=== PATIENT | female | born 1940 | race Caucasian/White ===

== ENCOUNTER 2019-12-22 11:46 | Inpatient (IN) | payer MEDICARE, BC ==
[~2019-12-22] VITALS: Ht 152.4 cm; Wt 59.1 kg
--- NOTE | ~2019-12-22 | HEMODYNAMI ---
PATIENT:CHRISTY GOULD MEDICAL RECORD: [id number] : 40 LOCATION:[facility] D.2122 ADMISSION DATE: 12/22/19 Generatedon:12/23/201916:08 Patient name: CHRISTY GOULD Patient #: [id number] SSN: [id number] : 1940 Date of study: 12/23/2019 Page: Of Hemodynamic Procedure Report Patient Data Patient Demographics Procedure consent was obtained First Name: CHRISTY Gender: Female Last Name: LUIS FERNANDO : 1940 Patient #: [id number] Age: 79 year(s) Race: SSN: [id number] Additional ID: [id number] Contact details Address: [address] [place] [address] State: [place] City: [place] Zip code: [address] Past Medical History Allergies: No known allergies Admission Admission Data Admission Date: 12/22/2019 Admission Time: 15:06 Arrival Date: 12/23/2019 Arrival Time: 0:00 Admit Source: Other Room #: D.2122 Lab Results Lab Result Date: 12/23/2019 Lab Result Time: 0:00 Biochemistry Name Units Result Min Max BUN mg/dl 14 --(--*-)-- 7 18 CK-MB ng/ml 237.3 --(----)-* 0 3.6 Creatinine mg/dl 0.8 --(-*--)-- 0.6 1.3 eGFR ml/min 73.21069 *-(----)-- 90 120 NONAFRICAN Troponin l ng/ml 45.5 --(----)-* 0 0.06 CBC Name Units Result Min Max Hematocrit % 50.4 --(--*-)-- 42 54 Hemoglobin g/dl 16.2 --(--*-)-- 13.5 17.5 Procedure Procedure Types Cath Procedure Diagnostic Procedure C LHC w/Coronaries Sedation Charges Moderate Sedation up to 30 minutes PCI Procedure Coronary Stent Coronary Stent Initial Hemochron ACT Test Procedure Description Procedure Date Procedure Date: 12/23/2019 Procedure Start Time: 15:20 Procedure End Time: 16:04 Procedure Staff Name Function Baltazar Davis MD Performing Physician Jaz Claros RT Monitor Andrea Blue RN Nurse Christy Reece RT Scrub Indication NSTEMI Procedure Data Cath Procedure Fluoroscopy Diagnostic fluoroscopy Total fluoroscopy Time: 7.2 time: 7.2 min min Diagnostic fluoroscopy Total fluoroscopy dose: 743 dose: 743 mGy mGy Contrast Material Contrast Material Type Amount (ml) Isovue 300 147 Entry Location Entry Primary Successful Side Size Upsize Upsize Entry Closure Succes sful Closure Location (Fr) 1 (Fr) 2 (Fr) Remarks Device Remarks Femoral Right 5 Fr 6 Fr Exoseal artery Short Estimated blood loss: 10 ml Diagnostic catheters Device Type Used For End Catheter Placement MULTIPACK JL 4.0 5Fr Left Coronary catheter Angiography MULTIPACK 3DRC 5Fr Right Coronary catheter Angiography MULTIPACK Pigtail 5 Fr LV Angiography catheter Procedure Complications No complications Procedure Medications Medication Administration Route Dosage Oxygen etCO2 Nasal cannula 2 l/min Lidocaine 2% added to field 20 Heparin Flush Bag added to field 2 bags (1000units/500ml NS) 0.9% NaCl I.V. 100 ml/hr Versed I.V. 1 mg Fentanyl I.V. 50 mcg Heparin Drip I.V. drip (90588pzjos/250 D5W) Heparin Bolus I.V. 5000 units Nitroglycerin IC/IA I.C. 100 mcg Nitroglycerin IC/IA I.C. 100 mcg Integrilin (Bolus I.V. 5 ml 2mg/ml) Integrilin Drip I.V. drip 9.4 ml/hr (75mg/100ml) Plavix P.O. 600 mg Hemodynamics Rest HGB: 16.2 (g/dl) Heart Rate: 110 (bpm) Pressure Samples Time Site Value (mmHg) Purpose Heart Use Rate(bpm) 15:29 LV 127/1,15 Snapshot 109 15:30 AO 130/66(94) Pullback 109 15:30 LV 170/1,64 Pullback 109 Gradients Valve Time Site 1 Site 2 Mean SEP/DFP Peak To Heart Use (mmHg) (sec/min) Peak Rate (mmHg) (bpm) Aortic 15:30 LV AO 15 17 40 109 170/1,64 130/66(94) Calculations Valve P-P Mean Valve Index Valve Source Name Gradient Area Flow (cm2) Aortic 40 15 40 15 Snapshots Pre Cath Intra NCS Post Cath Vital Signs Time Heart Resp SPO2 etCO2 NIBP (mmHg) Rhythm Pain Sedation Rate (ipm) (%) (mmHg) Status Level (bpm) 14:56:03 109 22 97 28.4 143/83(110) NSR 0 (11) 10(A) , No pain 15:00:13 108 22 95 29.1 140/82(107) NSR 0 (11) 10(A) , No pain 15:04:25 110 43 92 35.2 131/74(99) NSR 0 (11) 10(A) , No pain 15:08:35 106 12 92 45.6 129/71(99) NSR 0 (11) 10(A) , No pain 15:12:45 107 13 94 35.9 129/72(99) NSR 0 (11) 10(A) , No pain 15:16:53 104 14 93 34.4 128/75(96) NSR 0 (11) 9(A) , No pain 15:20:59 103 20 93 44.9 133/77(98) NSR 0 (11) 9(A) , No pain 15:25:08 101 12 93 17.2 121/72(101) NSR 0 (11) 9(A) , No pain 15:29:12 110 15 94 29.9 132/76(100) NSR 0 (11) 9(A) , No pain 15:33:20 103 17 98 20.9 127/74(92) NSR 0 (11) 9(A) , No pain 15:37:28 110 20 98 21.6 127/73(98) NSR 0 (11) 9(A) , No pain 15:41:34 106 11 96 26.1 129/77(110) NSR 0 (11) 9(A) , No pain 15:45:33 109 24 98 30.7 147/93(112) NSR 0 (11) 9(A) , No pain 15:49:45 113 12 98 26.9 133/84(105) NSR 0 (11) 9(A) , No pain 15:53:49 109 17 98 35.9 150/87(114) NSR 0 (11) 10(A) , No pain 15:57:59 107 13 98 32.8 152/88(119) NSR 0 (11) 10(A) , No pain Medications Time Medication Route Dose Verified Delivered Reason Notes Effectiveness by by 14:35:50 Heparin Drip I.V. discontinued Baltazar Buffie Per physician (92204oqbcf/250 drip Ryan Blue RN D5W) 14:45:15 Oxygen etCO2 2 l/min Baltazar Buffie used for Nasal Ryan Blue RN procedure cannula 14:54:22 Lidocaine 2% added 20ml vial Baltazar Baltazar for local to Ryan Davis MD anesthetic field 14:54:27 Heparin Flush added 2 bags Baltazar Baltazar used for Bag to Ryan Davis MD procedure (1000units/500ml field NS) 14:54:51 0.9% NaCl I.V. 100 ml/hr Baltazar Buffie Per physician Ryan Blue RN 15:11:30 Versed I.V. 1 mg Baltazar Buffie for sedation Ryan Blue RN 15:11:35 Fentanyl I.V. 50 mcg Baltazar Buffie for sedation Ryan Blue RN 15:34:28 Heparin Bolus I.V. 5000 units Baltazar Buffie for verified Ryan Blue RN anticoagulation with dr davis 15:42:13 Nitroglycerin I.C. 100 mcg Baltazar Buffie for IC/IA Ryan Blue RN vasodilation 15:48:48 Nitroglycerin I.C. 100 mcg Baltazar Buffie for IC/IA Ryan Blue RN vasodilation 15:52:36 Integrilin I.V. 5 ml Baltazar Buffie for Wasted 5 (Bolus 2mg/ml) Ryan Blue RN antiplatelet ml of therapy vial 16:00:35 Integrilin Drip I.V. 9.4 ml/hr Baltazar Buffie for (75mg/100ml) ip Ryan Blue RN antiplatelet therapy 16:00:42 Plavix P.O. 600 mg Baltazar Buffie for Ryan Blue RN antiplatelet therapy Procedure Log Time Note 14:18:47 Informed consent obtained and on chart 14:19:08 Diagnostic Cath Status : Urgent 14:20:29 Lab Result : Troponin l 45.5 ng/ml 14:20:29 Lab Result : Hemoglobin 16.2 g/dl 14: Lab Result : eGFR NONAFRICAN 73.91916 ml/min 14: Lab Result : BUN 14 mg/dl : Lab Result : Creatinine 0.8 mg/dl 14: Lab Result : CK-MB 237.3 ng/ml 14: Lab Result : Hematocrit 50.4 % 14:21:09 Arrival Date: 12/23/2019 12:00:00 AM 14:21:10 Admit Source: Other 14:33:03 Indication : NSTEMI 14:33:31 Procedure Status Urgent Heart Cath (IP). 14:33:34 Andrea Blue RN sent for patient. Start room use. 14:33:37 Time tracking: Regular hours (M-F 7:00 - 5:00) 14:33:44 Plan of Care:Hemodynamics will remain stable., Cardiac rhythm will remain stable., Comfort level will be maintained., Respiratory function will remain adequate., Patient/ family verbilizes understanding of procedure., Procedure tolerated without complication., Recovers from procedure without complications.. 14:33:55 H&P Date Dictated: 12/23/2019 Within 30 days and on chart., ER History o n chart.. 14:34:07 Patient allergic to No known allergies 14:34:20 Lab results completed and on chart. 14:35:50 Heparin Drip (19506ijvcs/250 D5W) discontinued I.V. drip was administered by Andrea Blue RN; Per physician; Verbal order read back and verified. 14:39:53 Risk of Mortality: 6.9 14:40:00 Risk of blood transfusion: 10.0 14:40:15 Risk of JULIEN: 6.6 14:40:30 Stress Test: no; N/A ? 14:40:47 Patient received from Med II to CCL 1 Alert and oriented. Tansferred to table in Supine position. 14:40:50 Warm blankets applied, and rayshawn hugger turned on for patient comfort. 14:40:50 Correct patient and procedure confirmed by team. 14:40:51 ECG and BP/O2 sat monitors applied to patient. 14:42:00 Previous problem with sedation/anesthesia? Yes nausea 14:42:03 Snore? Yes 14:42:06 Sleep apnea? No 14:42:09 Deviated septum? Unknown 14:42:11 Opens mouth fully? Yes 14:42:14 Sticks out tongue? Yes 14:42:18 Airway obstruction? No ? 14:42:24 Dentures? No ? 14:42:29 Is patient on blood thinner?Yes 14:42:35 ACC The patient was administered the following blood thiners within the last 24 hours: ACCHeparin 14:45:15 Oxygen 2 l/min etCO2 Nasal cannula was administered by Andrea Blue RN; used for procedure; Verbal order read back and verified. 14:45:34 Pt transported to general laborer on room air, Pt oxygen saturation off of 2 liters oxygen was measured at 85%. Placed back on 2 l NC. 14:54:22 Lidocaine 2% 20ml vial added to field was administered by Baltazar Davis MD ; for local anesthetic; Verbal order read back and verified. 14:54:27 Heparin Flush Bag (1000units/500ml NS) 2 bags added to field was administered by Baltazar Davis MD; used for procedure; Verbal order read back and verified. 14:54:51 0.9% NaCl 100 ml/hr I.V. was administered by Andrea Blue RN; Per physician; Verbal order read back and verified. 14:54:55 Vital chart was started 14:56:32 Baseline sample Acquired. 14:56:45 Rhythm: sinus tachycardia 14:56:47 Full Disclosure recording started 14:56:48 - 14:56:49 Pre-procedure instructions explained to patient. 14:56:50 Pre-op teaching completed and patient verbalized understanding. 14:57:01 Family unavailable. 14:57:04 Patient NPO since Midnight. 14:57:54 Is the patient allergic to Iodine/contrast media? No. 14:58:02 Was the patient premedicated? Yes 14:58:05 Patient diabetic? No. 14:58:13 Pre procedure: right dorsailis pedis pulse 1+ Palpable, but thready & weak; easily obliterated 14:58:25 IV patent on arrival in left antecubital with 0.9% NaCl at [facility]. 14:58:37 Right groin area was prepped with chlora-prep and draped in sterile fashion 14:58:40 Alarms reviewed by R. N. 14:58:40 Sharps counted by scrub and verified by R.N. 14:58:48 Use device set Femoral Dx 14:58:50 ACIST Syringe (89220) opened to sterile field. 14:58:50 Bag Decanter (2002S) opened to sterile field. 14:58:51 Medline Cath Pack ([id number]) opened to sterile field. 14:58:52 ACIST Hand Control (48957) opened to sterile field. 14:58:53 ACIST Manifold (97076) opened to sterile field. 14:58:56 DIAGNOSTIC Multipack 5Fr catheter set (XK1034) opened to sterile field. 14:59:03 SHEATH 5FR Lonetree (NIE246) opened to sterile field. 14:59:03 EMERALD Guide Wire (482-806) opened to sterile field. 15:05:53 Zero performed for pressure channel P1 15:11:19 Physician arrived 15:11:19 --------ALL STOP TIME OUT------ 15:11:20 Final Timeout: patient, procedure, and site verified with staff and physician. All members of the team are in agreement. 15:11:23 Right groin site verified by team. 15:11:29 Fire Safety Assessment: A--An alcohol-based skin anteseptic being used preoperatively., C--Open oxygen or nitrous oxide is being used., D--An ESU, laser, or fiber-optic light is being used. 15:11:30 Versed 1 mg I.V. was administered by Andrea Blue RN; for sedation; Verbal order read back and verified. 15:11:35 Fentanyl 50 mcg I.V. was administered by Andrea Blue RN; for sedation; Verbal order read back and verified. 15:11:36 Physical assessment completed. ASA score P 2 - A patient with mild systemic disease as per Baltazar Davis MD. 15:11:42 2) 60-89 Mildly reduced kidney function, and other findings (as for stage 1) point to kidney disease. 15:11:49 Maximum allowable contrast dose (3.7 X eGFR X 0.75)203 ml. 15:11:58 Sedation plan: IV Moderate Sedation Medication:Versed, Fentanyl 15:20:50 Procedure started. 15:20:56 Local anesthetic to right femoral artery with Lidocaine 2% by Baltazar romeo MD.INITIAL ACCESS ONLY 15:21:47 A 5 Fr sheath was inserted into the Right Femoral artery 15:21:50 Tegaderm 4 x 4 (1626W) opened to sterile field. 15:23:40 A MULTIPACK JL 4.0 5Fr catheter was advanced over the wire and used for Left Coronary Angiography. 15:24:23 LCA angiography performed. 15:24:43 Injector settings: Ml/sec: 3, Volume: 6, 15:25:43 Catheter removed. 15:25:51 A MULTIPACK 3DRC 5Fr catheter was advanced over the wire and used for Right Coronary Angiography. 15:26:55 RCA angiography performed. 15:27:05 Injector settings: Ml/sec: 3, Volume: 6, 15:28:23 Catheter removed. 15:28:46 A MULTIPACK Pigtail 5 Fr catheter was advanced over the wire and used for LV Angiography. 15:29:21 SHEATH 6FR Lonetree (FYV826) opened to sterile field. 15:29:22 INFLATOR Merit BasixCompak (FX7003) opened to sterile field. 15:29:23 TUBING High Pressure Extension Tubing (Davis) (FR0253A) opened to sterile field. 15:29:46 LV gram done using CONTRERAS 15:30:12 EF : 45 % 15:30:20 LV hemodynamics recorded. 15:30:27 Injector settings: Ml/sec: 5, Volume: 15, 15:30:32 Catheter removed. 15:30:33 Proceeding to intervention. 15:30:46 Sheath upsized to a 6 Fr Short. 15:31:12 Asahi Minamo 300cm wire opened to sterile field. 15:32:01 GUIDE 6FR XB 3.5 catheter ([id number]) opened to sterile field. 15:32:09 ACC Pre-intervention JORDYN Flow is 0. 15:32:20 6 Fr XB3.5 guide catheter was inserted over the wire 15:32:37 [id number] wire advanced. 15:34:23 Pre PCI Site: [place] mCirc has 100% stenosis. 15:34:28 Heparin Bolus 5000 units I.V. was administered by Andrea Blue RN; for anticoagulation; verified with dr davis Verbal order read back and verified. 15:36:23 Wire advanced across lesion. 15:40:17 Inflate balloon Inflation number: 1 A EUPHORA 2.5 x 15 Balloon ([id number]) was prepped and advanced across the Mid CX , then inflated to 10 MAIDA for 0:12 (min:sec) . 15:40:47 Quick Combo opened to sterile field. 15:41:14 Quick combo pads placed on patients chest and back. 15:42:13 Nitroglycerin IC/IA 100 mcg I.C. was administered by Andrea Blue RN; fo r vasodilation; Verbal order read back and verified. 15:45:26 Balloon removed over the wire. 15:48:17 Place stent Inflation Number: 2 A GEORGE OTW 2.75 x 15 stent ([id number] ) was prepped and advanced across the Mid CX . The stent was deployed at 11 MAIDA for 0:16 (min:sec) . 15:48:48 Nitroglycerin IC/IA 100 mcg I.C. was administered by Andrea Blue RN; fo r vasodilation; Verbal order read back and verified. 15:52:36 Integrilin (Bolus 2mg/ml) 5 ml I.V. was administered by Andrea Blue RN; for antiplatelet therapy; Wasted 5 ml of vial Verbal order read back and verified. 15:52:40 Post PCI Site: [place] mCirc has 0% stenosis. 15:52:52 ACC Post-intervention JORDYN Flow is 3. 15:52:54 Stent catheter was removed intact over wire. 15:52:56 Wire removed. 15:52:58 Guide catheter removed. 15:53:01 EXOSEAL 6Fr (EX600) opened to sterile field. 15:53:33 Sheath removed intact; hemostasis achieved with Exoseal to the Right Femoral artery. 15:53:53 Fluoroscopy time 07.20 minutes. 15:54:00 Fluoroscopy dose: 743 mGy 15:54:00 Flurop Dose total: 743 15:54:08 Dose Area Product 45392 mGy/cm. 15:54:16 Contrast amount:Isovue 300 147ml. 15:54:20 Maximum allowable dose exceeded? No. 15:54:29 Procedure ended.(Physican Out) 15:54:31 Sharps counted by scrub and verified by R.N. 15:54:38 Post-op/insertion site Right Femoral artery dressed using a 4 x 4 and Tegaderm. 15:55:33 Post-procedure physical assessment completed. ASA score P 2 - A patient with mild systemic disease as per Baltazar Davis MD. 15:55:43 Post procedure rhythm: unchanged. 15:55:47 Estimated blood loss: 10 ml 15:55:48 Post procedure instruction explained to patient.Patient verbalizes understanding. 15:55:49 Patient needs reinforcement of post procedure teaching. 15:57:33 Procedure type changed to Cath procedure, Diagnostic procedure, LHC, C w/Coronaries, Sedation Charges, Moderate Sedation up to 30 minutes, PCI procedure, Coronary Stent, Coronary Stent Initial, Hemochron ACT Test 15:57:36 Procedure and supply charges have been captured, reviewed, submitted an d are correct. 15:58:51 Procedure Complication : No complications 15:59:01 Vital chart was stopped 15:59:05 [facility] Findings: MVD- PCI performed (see procedure note) 15:59:09 See physician's report for complete and final results. 15:59:13 Report given to [facility]. 15:59:19 Patient transfered to [facility] with Bed. 16:00:35 Integrilin Drip (75mg/100ml) 9.4 ml/hr I.V. drip was administered by Andrea Blue RN; for antiplatelet therapy; Verbal order read back and verified. 16:00:42 Plavix 600 mg P.O. was administered by Andrea Blue RN; for antiplatelet therapy; Verbal order read back and verified. 16:02:00 ACT drawn and resulted at out of range high seconds. (normal therapeuti c range 180-240 seconds). 16:04:16 Procedure ended. 16:04:16 Full Disclosure recording stopped 16:04:32 ACC-PCI Only Patient was given prescriptions, or instructed by Baltazar Davis MD to start/continue the following medications upon discharge: Plavix 16:05:03 End room use (Document Last) Intervention Summary Intervention Notes Time ActionType Lesion and Equipment Action# Pressure Duration Attributes Used 15:40:17 Inflate Mid CX EUPHORA 2.5 x 1 10 00:12 balloon 15 Balloon ([id number]) 15:48:17 Place stent Mid CX GEORGE OTW 2.75 2 11 00:16 x 15 stent ([id number]) Device Usage Item Name Manufacture Quantity Catalog Hospital Part Current Min imal Lot# / Number Charge Number Stock Stock Serial# Code ACIST Syringe Acist 1 13365 602791 232526 514167 20 (32195) Medical Systems Inc Bag Decanter Microtek 1 880270 72420 472558 5 (2001S) Medical Inc. Medline Cath Medline 1 [id number] 017153 04375 420709 5 Pack ([id number]) ACIST Hand Acist 1 95476 132182 807896 398392 5 Control Medical (61830) Systems Inc ACIST Acist 1 32977 218480 643410 158456 5 Manifold Medical (33771) Systems Inc DIAGNOSTIC Cardinal 1 WQ1626 460227 93749 951108 30 Multipack 5Fr Health catheter set (KA3261) SHEATH 5FR Terumo 1 DJX145 299354 224021 329251 5 Lonetree (TPV522) EMERALD Guide Cardinal 1 502-455 579106 370359 444233 5 Wire Health (502-455) Tegaderm 4 x 3M 1 1626W 994046 544284 851131 5 4 (1626W) MULTIPACK JL Cardinal 1 697143 5 4.0 5Fr Health catheter MULTIPACK Cardinal 1 730993 5 3DRC 5Fr Health catheter MULTIPACK Cardinal 1 786787 5 Pigtail 5 Fr Health catheter SHEATH 6FR Terumo 1 UQU843 088042 106730 071501 40 Lonetree (BHM808) INFLATOR Merit 1 NS5750 667009 488791 173930 15 Merit Medical BasixCompak (YQ6407) TUBING High Merit 1 [id number] 682366 63746 312462 10 Pressure Medical Extension Tubing (Davis) (HT7845P) Asafl Mino [facility] Intecc 1 [id number] 424950 9475064 551982 0 300cm wire GUIDE 6FR XB Cardinal 1 59524228 484894 025126 914347 2 3.5 catheter Health (74894261) EUPHORA 2.5 x Medtronic 1 [id number] 516386 244670 652649 5 184188138 15 Balloon ([id number]) Peg[employer] 1 52480-377733 174756 952010 219955 5 GEORGE OTW 2.75 Medtronic 1 [id number] 876277 2373150 076140 5 [id number] x 15 stent ([id number]) EXOSEAL 6Fr Cardinal 1 EX600 123944 795286 362329 10 (EX600) Health Signature Audit [place] Stage Time Signature Unsigned Intra-Procedure 12/23/2019 Jaz 4:05:36 PM Hyacinth RT(R) (CV) Intra-Procedure 12/23/2019 Andrea Blue RN 4:07:26 PM Intra-Procedure 12/23/2019 Baltazar Davis MD 4:08:07 PM [id number] [place] [address]
[2019-12-22 12:25] VITALS: BP 145/86
[2019-12-22 12:28] LABS: BASOPHILS 0.3 % (0-2); EOSINOPHILS 0.1 % (0-7); HEMATOCRIT 51.7 % (36.0-48.0); HEMOGLOBIN 17.2 g/dL (12-16); IMMATURE GRANULOCYTES 0.2 % (0-5); LYMPHOCYTES 12.7 % (15-50); MCH 31.3 pg (26.0-34.0); MCHC 33.3 g/dL (31.0-37.0); MCV 94.2 fL (80.0-100.0); MONOCYTES 8.6 % (2-11); NEUTROPHILS 78.1 % (40-80); PLATELET COUNT 151 10x3/uL (130-400); RBC 5.49 10x6/uL (4.00-5.40); RDW 12.8 % (11.5-14.5)
[2019-12-22 12:30] LABS: CALC OSMOLALITY 263 mosm/kg (275-300); CALCIUM 9.6 mg/dL (8.5-10.1); CARBON DIOXIDE 28.5 mmol/L (21.0-32.0); CHLORIDE - SERUM 98 mmol/L (98-107); CREATININE - SERUM 0.8 mg/dL (0.6-1.3); GLUCOSE 105 mg/dL (74-106); POTASSIUM - SERUM 4.1 mmol/L (3.5-5.1); SODIUM 131 mmol/L (136-145); UREA NITROGEN 14 mg/dL (7-18); eGFR NON AFRICAN AMERICAN 73 mL/min (90-120)
[2019-12-22 12:33] LABS: APTT 37.3 SECONDS (22.8-39.4); INR 1.01 (0.85-1.17); PROTIME 13.3 SECONDS (11.6-15.0)
[2019-12-22 13:03] LABS: ALBUMIN 3.9 g/dL (3.4-5.0); ALKALINE PHOSPHATASE 82 U/L (30-120); ALT (SGPT) 47 U/L (10-68); BILIRUBIN - TOTAL 0.48 mg/dL (0.2-1.3); PROTEIN - SERUM 7.2 g/dL (6.4-8.2)
[2019-12-22 13:08] LABS: CKMB 457.3 U/L (0.0-3.6); CREATINE KINASE 2009 UL (21-215)
[2019-12-22 13:12] LABS: TROPONIN-I 27.001 ng/mL (0.000-0.060)
[2019-12-22 13:48] VITALS: BP 146/73
[2019-12-22 13:55] LABS: HEMATOCRIT 52.7 % (36.0-48.0); HEMOGLOBIN 17.7 g/dL (12-16); MCH 31.6 pg (26.0-34.0); MCHC 33.6 g/dL (31.0-37.0); MCV 93.9 fL (80.0-100.0); MEAN PLATELET VOLUME 10.1 fL (7.4-10.4); RBC 5.61 10x6/uL (4.00-5.40); WBC 12.4 10x3/uL (4.8-10.8)
[2019-12-22 14:39] VITALS: BP 152/57
[2019-12-22 15:08] VITALS: BP 149/74
[2019-12-22 16:26] LABS: CHOL - HDL RATIO 2.7 ratio (2.3-4.1); LDL-HDL RATIO 1.5 ratio (1.5-3.5)
[2019-12-22 20:00] VITALS: BP 155/80
[2019-12-23] VITALS: BP 115/54
[2019-12-23 01:17] VITALS: Ht 152.4 cm; Wt 59.1 kg
[2019-12-23 01:37] LABS: CKMB 237.3 U/L (0.0-3.6)
[2019-12-23 01:38] LABS: CREATINE KINASE 1567 UL (21-215); TROPONIN-I 45.531 ng/mL (0.000-0.060)
[2019-12-23 04:00] VITALS: BP 122/57
[2019-12-23 07:14] LABS: BASOPHILS 0.1 % (0-2); EOSINOPHILS 0.1 % (0-7); HEMATOCRIT 50.4 % (36.0-48.0); HEMOGLOBIN 16.2 g/dL (12-16); IMMATURE GRANULOCYTES 0.2 % (0-5); MCH 30.5 pg (26.0-34.0); MCHC 32.1 g/dL (31.0-37.0); MCV 94.7 fL (80.0-100.0); MEAN PLATELET VOLUME 11.6 fL (7.4-10.4); NEUTROPHILS 76.6 % (40-80); PLATELET COUNT 156 10x3/uL (130-400); RBC 5.32 10x6/uL (4.00-5.40); RDW 13.1 % (11.5-14.5); WBC 11.4 10x3/uL (4.8-10.8)
[2019-12-23 08:00] VITALS: BP 130/72
[2019-12-23 08:58] LABS: CALCIUM 8.8 mg/dL (8.5-10.1); CARBON DIOXIDE 28.7 mmol/L (21.0-32.0); CHLORIDE - SERUM 103 mmol/L (98-107); CHOL - HDL RATIO 2.5 ratio (2.3-4.1); CHOLESTEROL, TOTAL 175 mg/dL (0-200); CKMB 185.8 U/L (0.0-3.6); GLUCOSE 102 mg/dL (74-106); HDL CHOLESTEROL 69 mg/dL (32-96); LDL CHOLESTEROL 96 mg/dL (0-100); LDL-HDL RATIO 1.4 ratio (1.5-3.5); MAGNESIUM - SERUM 1.9 mg/dL (1.8-2.4); PHOSPHOROUS 3.2 mg/dL (2.5-4.9); POTASSIUM - SERUM 4.1 mmol/L (3.5-5.1); SODIUM 138 mmol/L (136-145); THYROID STIMULATING HORMONE 1.19 uIU/mL (0.36-3.74); TRIGLYCERIDE 54 mg/dL (30-200)
[2019-12-23 08:59] LABS: CALC OSMOLALITY 273 mosm/kg (275-300); CREATINE KINASE 1280 UL (21-215); CREATININE - SERUM 0.5 mg/dL (0.6-1.3); TROPONIN-I 39.691 ng/mL (0.000-0.060); UREA NITROGEN 8 mg/dL (7-18); eGFR NON AFRICAN AMERICAN > 90 mL/min (90-120)
[2019-12-23 10:15] LABS: ALT (SGPT) 60 U/L (10-68)
--- NOTE | 2019-12-23 14:34 | NUR ---
PRE-OPS GIVEN. TO SENIOR LEAD PROJECT MANAGER BY BED.
[2019-12-23 14:46] LABS: CREATINE KINASE 872 UL (21-215)
[2019-12-23 14:47] LABS: TROPONIN-I 35.996 ng/mL (0.000-0.060)
--- NOTE | 2019-12-23 16:48 | NUR ---
BACK FROM HOMICIDE SQUAD CAPTAIN. VS WNL. RIGHT GROIN STABLE WITHOUT BLEEDING OR HEMATOMA NOTED. WILL MONITOR.
--- NOTE | 2019-12-23 19:42 | NUR ---
RECEIVED BEDSIDE REPORT. ROUNDING COMPLETE. PATIENT IS ALERT AND ORIENTED, RESPIRATIONS ARE EVEN AND UNLABORED. NO S/S OF DISTRESS. NO C/O PAIN. CALL LIGHT WITHIN REACH. WILL CPOC.
[2019-12-23 20:00] VITALS: BP 108/75
[2019-12-24 01:55] VITALS: BP 131/73
[2019-12-24 05:58] VITALS: BP 134/74
[2019-12-24 07:22] LABS: CALC OSMOLALITY 276 mosm/kg (275-300); CARBON DIOXIDE 28.1 mmol/L (21.0-32.0); CHLORIDE - SERUM 103 mmol/L (98-107); CREATININE - SERUM 0.5 mg/dL (0.6-1.3); GLUCOSE 87 mg/dL (74-106); MAGNESIUM - SERUM 1.7 mg/dL (1.8-2.4); PHOSPHOROUS 2.2 mg/dL (2.5-4.9); POTASSIUM - SERUM 3.7 mmol/L (3.5-5.1); SODIUM 139 mmol/L (136-145); UREA NITROGEN 13 mg/dL (7-18); eGFR NON AFRICAN AMERICAN > 90 mL/min (90-120)
[2019-12-24 07:28] LABS: BASOPHILS 0.1 % (0-2); EOSINOPHILS 0 % (0-7); HEMATOCRIT 46.5 % (36.0-48.0); IMMATURE GRANULOCYTES 0.3 % (0-5); LYMPHOCYTES 7.4 % (15-50); MCH 30.5 pg (26.0-34.0); MCHC 32.3 g/dL (31.0-37.0); MCV 94.7 fL (80.0-100.0); MEAN PLATELET VOLUME 10.7 fL (7.4-10.4); MONOCYTES 17.3 % (2-11); NEUTROPHILS 74.9 % (40-80); PLATELET COUNT 129 10x3/uL (130-400); RBC 4.91 10x6/uL (4.00-5.40); RDW 13.2 % (11.5-14.5); WBC 11.7 10x3/uL (4.8-10.8)
[2019-12-24 07:57] VITALS: BP 133/76
[2019-12-24 11:19] VITALS: BP 137/75
--- NOTE | 2019-12-24 12:03 | NUR ---
02 SAT 75% ON RA AT REST. RESULTS GIVEN TP WELDER FITTER HELPER TO WORK ON GETTING HOME 02.
--- NOTE | 2019-12-24 13:36 | MORECARE ---
CASE MANAGEMENT DISCHARGE SUMMARY PATIENT: CHRISTY GOULD UNIT: [id number] ADM DATE: 12/22/19 AGE: 79 : 40 SEX: F ROOM/BED: D.2121 AUTHOR: WILFRED OVALLE PHYSICIAN: REFERRING PHYSICIAN: BRIA THORNTON MD DATE OF SERVICE: 12/24/19 Discharge Plan Patient Name: CHRISTY GOULD Facility: [facility]:[place] : 1940 Planned Disposition: Home Anticipated Discharge Date: Discharge Date: Expected LOS: Initial Reviewer: [email or web address] Initial Review Date: 12/22/2019 Generated: 12/24/19 2:35 pm External Providers External Provider: OTHER-OTHER Next Contact Date: Service Request Date: Service Type: Resolution: Reviewer: Comments: Patient Name: CHRISTY GOULD Page 00437 at 1336 All edits/amendments must be made on the electronic document DICTATION DATE: 12/24/19 1335 PRIMARY CARE PEDIATRICIAN: MEME 12/24/19 1335 RPT#: [id number] DC DATE: STATUS: ADM IN [facility] [address] [place] [address] END OF REPORT
[2019-12-24 14:43] VITALS: BP 129/63
--- NOTE | 2019-12-24 14:47 | MORECARE ---
CASE MANAGEMENT DISCHARGE SUMMARY PATIENT: CHRISTY GOULD UNIT: [id number] ADM DATE: 12/22/19 AGE: 79 : 40 SEX: F ROOM/BED: D.8914 AUTHOR: YAMILEDOC PHYSICIAN: REFERRING PHYSICIAN: BRIA THORNTON MD DATE OF SERVICE: 12/24/19 Discharge Plan Patient Name: CHRISTY GOULD Facility: [facility]:[place] : 1940 Planned Disposition: Home Anticipated Discharge Date: Discharge Date: Expected LOS: Initial Reviewer: [email or web address] Initial Review Date: 12/22/2019 Generated: 12/24/19 3:46 pm Comments DCP- Discharge Planning Updated by [email or web address]: Karen Morocho on 12/24/19 1:[address] CM contacted [facility] for home O2 with portability. Spoke with Nevaeh, to arrange delivery of O2. CM faxed requested information along with the order and Walk test. CM met with patient to discuss initial discharge planning. Patient is in agreement to proceed. Patient reports that she lives at home independently. Patient is alert/oriented. PCP: Dr. Mccauley. Pharmacy: [facility] for intermission coordinator medications. Patient states she has been able to obtain all of her prescribed medications. HHS: None. DME: None. Emergency contact: Colton Gould (dtr), . Patient is Independent with all ADL's, medication management CONTRACT NEGOTIATION MANAGER. CM discussed the availability of HH, Rehab, SNF, OP Therapy, DME services. Patient denies the need for additional services at this time and feels safe returning to previous environment. Patient denies hospitalization within the past 30 days. Patient denies the use of community resources CONTRACT NEGOTIATION MANAGER. Transportation at time of discharge: Coverage Notice Reviewer: [email or web address] - Karen Morocho Notice Issued Date-Time: 12/24/2019 13:41 Notice Type: IM Discharge Notice Notice Delivered To: Patient Relationship to Patient: Self Litigation Legal Secretary Name: Christy Aranda Delivery Method: HAND - Hand Delivered Kyleigh Days: Prior Verbal Notification: Recipient Understood Notice: Yes Recipient Signature: Yes Med Rec Note Co-signed by Attending: Coverage Notice Comment: DC IMM signed/delivered to patient. Original to chart. Reviewer: [id number] - Karen Morocho Notice Issued Date-Time: 12/24/2019 13:41 Notice Type: Patient Choice Letter Notice Delivered To: Patient Relationship to Patient: Self Litigation Legal Secretary Name: Christy Gould Delivery Method: - Kyleigh Days: Prior Verbal Notification: Recipient Understood Notice: Yes Recipient Signature: Yes Med Rec Note Co-signed by Attending: Coverage Notice Comment: Patrick Camacho to patient/original to chart. Last DP export: 12/24/19 12:36 p Patient Name: CHRISTY GOULD Page 30754 at 1447 All edits/amendments must be made on the electronic document DICTATION DATE: 12/24/19 1446 LIBRARY SERVICES ASSISTANT: MEME 12/24/19 1446 RPT#: [id number] DC DATE: STATUS: ADM IN [facility] [address] [place] [address] END OF REPORT
--- NOTE | 2019-12-24 16:09 | MORECARE ---
CASE MANAGEMENT DISCHARGE SUMMARY PATIENT: CHRISTY GOULD UNIT: [id number] ADM DATE: 12/22/19 AGE: 79 : 40 SEX: F ROOM/BED: D.3634 AUTHOR: YAMILEDOC PHYSICIAN: REFERRING PHYSICIAN: BRIA THORNTON MD DATE OF SERVICE: 12/24/19 Discharge Plan Patient Name: CHRISTY GOULD Facility: [facility]:[place] : 1940 Planned Disposition: Home Anticipated Discharge Date: Discharge Date: Expected LOS: Initial Reviewer: [email or web address] Initial Review Date: 12/22/2019 Generated: 12/24/19 5:08 pm Comments DCP- Discharge Planning Updated by [email or web address]: Karen Morocho on 12/24/19 3:[address] Marley signed Certificate of Medical Necessity for patient O2. DARRYL faxed the order to Nevaeh @[phone], Attn: Nevaeh. CM [place] [facility] [place] with [place]. Spoke with Nevaeh, to arrange delivery of O2. CM faxed requested information along with the order and Walk test. CM met with patient to discuss initial discharge planning. Patient is in agreement to proceed. Patient reports that she lives at home independently. Patient is alert/oriented. PCP: Dr. Mccauley. Pharmacy: [facility] for terminologist medications. Patient states she has been able to obtain all of her prescribed medications. HHS: None. DME: None. Emergency contact: Colton Gould (dtr), . 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 CM discussed the availability of HH, Rehab, SNF, OP Therapy, DME services. Patient denies the need for additional services at this time and feels safe returning to previous environment. Patient denies hospitalization within the past 30 days. 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 Transportation at time of discharge: Coverage Notice Reviewer: [id number] - Karen Morocho Notice Issued Date-Time: 12/24/2019 13:41 Notice Type: IM Discharge Notice Notice Delivered To: Patient Relationship to Patient: Self Fuse Cutter Name: Christy Aranda Delivery Method: HAND - Hand Delivered Kyleigh Days: Prior Verbal Notification: Recipient Understood Notice: Yes Recipient Signature: Yes Med Rec Note Co-signed by Attending: Coverage Notice Comment: DC IMM signed/delivered to patient. Original to chart. Reviewer: [id number] - Karen Morocho Notice Issued Date-Time: 12/24/2019 13:41 Notice Type: Patient Choice Letter Notice Delivered To: Patient Relationship to Patient: Self Fuse Cutter Name: Christy Gould Delivery Method: - Kyleigh Days: Prior Verbal Notification: Recipient Understood Notice: Yes Recipient Signature: Yes Med Rec Note Co-signed by Attending: Coverage Notice Comment: Patrick Camacho to patient/original to chart. Last DP export: 12/24/19 1:47 p Patient Name: CHRISTY GOULD Page [phone] at 1609 All edits/amendments must be made on the electronic document DICTATION DATE: 12/24/191607 BLANKET WEAVER: MEME 12/24/198 RPT#: [id number] DC DATE: STATUS: ADM IN [facility] [address] [place] [address] END OF REPORT
--- NOTE | 2019-12-24 16:15 | MORECARE ---
CASE MANAGEMENT DISCHARGE SUMMARY PATIENT: CHRISTY GOULD UNIT: [id number] ADM DATE: 12/22/19 AGE: 79 : 40 SEX: F ROOM/BED: D.9346 AUTHOR: YAMILEDOC PHYSICIAN: REFERRING PHYSICIAN: BRIA THORNTON MD DATE OF SERVICE: 12/24/19 Discharge Plan Patient Name: CHRISTY GOULD Facility: [facility]:[place] : 1940 Planned Disposition: Home Anticipated Discharge Date: Discharge Date: Expected LOS: Initial Reviewer: [id number] Initial Review Date: 12/22/2019 Generated: 12/24/19 5:14 pm Comments DCP- Discharge Planning Updated by [email or web address]: Karen Morocho on 12/24/19 3:[address] Marley signed Certificate of Medical Necessity for patient O2. CM faxed the order to [facility] @[phone], Attn: Nevaeh. Patient's portable O2 will be delivered today. CM contacted [facility] for home O2 with portability. Spoke with Nevaeh, to arrange delivery of O2. CM faxed requested information along with the order and Walk test. CM met with patient to discuss initial discharge planning. Patient is in agreement to proceed. Patient reports that she lives at home independently. Patient is alert/oriented. PCP: Dr. Mccauley. Pharmacy: [facility], [facility] for detention medications. Patient states she has been able to obtain all of her prescribed medications. HHS: None. DME: None. Emergency contact: Colton Gould (dtr), . 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 CM discussed the availability of HH, Rehab, SNF, OP Therapy, DME services. Patient denies the need for additional services at this time and feels safe returning to previous environment. Patient denies hospitalization within the past 30 days. Patient denies the use of community resources PROGRAM DIRECTOR. Transportation at time of discharge: Coverage Notice Reviewer: [id number] - Karen Morocho Notice Issued Date-Time: 12/24/2019 13:41 Notice Type: IM Discharge Notice Notice Delivered To: Patient Relationship to Patient: Self Collections Professional Name: Christy Aranda Delivery Method: HAND - Hand Delivered Kyleigh Days: Prior Verbal Notification: Recipient Understood Notice: Yes Recipient Signature: Yes Med Rec Note Co-signed by Attending: Coverage Notice Comment: DC IMM signed/delivered to patient. Original to chart. Reviewer: [email or web address] Suraj Morocho Notice Issued Date-Time: 12/24/2019 13:41 Notice Type: Patient Choice Letter Notice Delivered To: Patient Relationship to Patient: Self Collections Professional Name: Christy Gould Delivery Method: - Kyleigh Days: Prior Verbal Notification: Recipient Understood Notice: Yes Recipient Signature: Yes Med Rec Note Co-signed by Attending: Coverage Notice Comment: Patrick Camacho to patient/original to chart. Last DP export: 12/24/19 3:09 p Patient Name: CRHISTY GOULD Page [phone] at 1615 All edits/amendments must be made on the electronic document DICTATION DATE: 12/24/191614 TURNING LATHE TENDER: MEME 12/24/19 161 RPT#: [id number] DC DATE: STATUS: ADM IN [facility] [address] [place] [address] END OF REPORT
[2019-12-24] MEDS ORDERED: LIPITOR20 MG PO (16:16)
[2019-12-24] MEDS ORDERED: COREG 3.1253.125 MG PO (16:16)
[2019-12-24] MEDS ORDERED: ASPIRIN81 MG PO (16:16)
[2019-12-24] MEDS ORDERED: PLAVIX75 MG PO (16:16)
--- NOTE | 2019-12-24 18:02 | NUR ---
IV AND TELEMETRY DCD. DC PLANS GIVEN. UNDERSTANING VOICED. PORTABLE O2 DELIVERED. ESCORTED TO CAR BY W/C.
--- NOTE | 2019-12-28 09:05 | MORECARE ---
CASE MANAGEMENT DISCHARGE SUMMARY PATIENT: CHRISTY GOULD UNIT: [id number] ADM DATE: 12/22/19 AGE: 79 : 40 SEX: F ROOM/BED: D.6431 AUTHOR: WILFRED OVALLE PHYSICIAN: REFERRING PHYSICIAN: BRIA THORNTON MD DATE OF SERVICE: 12/28/19 Discharge Plan Patient Name: CHRISTY GOULD Facility: [facility]:[place] : 1940 Planned Disposition: Home Anticipated Discharge Date: Discharge Date: 12/24/2019 Expected LOS: Initial Reviewer: [id number] Initial Review Date: 12/22/2019 Generated: 12/28/19 10:04 am Comments DCP- Discharge Planning Updated by [email or web address]: Karen Morocho on 12/24/19 3:[address] Marley signed Certificate of Medical Necessity for patient O2. DARRYL faxed the order to [facility] @[phone], Attn: Nevaeh. Patient's portable O2 will be delivered today. CM [place] [facility] [place] with [place]. Spoke with Nevaeh, to arrange delivery of O2. CM faxed requested information along with the order and Walk test. CM met with patient to discuss initial discharge planning. Patient is in agreement to proceed. Patient reports that she lives at home independently. Patient is alert/oriented. PCP: Dr. Mccauley. Pharmacy: [facility], [facility] for halfway medications. Patient states she has been able to obtain all of her prescribed medications. HHS: None. DME: None. Emergency contact: Colton Gould (dtr), . 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 CM discussed the availability of HH, Rehab, SNF, OP Therapy, DME services. Patient denies the need for additional services at this time and feels safe returning to previous environment. Patient denies hospitalization within the past 30 days. 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 Transportation at time of discharge: Coverage Notice Reviewer: [id number] - Karen Morocho Notice Issued Date-Time: 12/24/2019 13:41 Notice Type: IM Discharge Notice Notice Delivered To: Patient Relationship to Patient: Self Traveling Sales Executive Name: Christy Aranda Delivery Method: HAND - Hand Delivered Kyleigh Days: Prior Verbal Notification: Recipient Understood Notice: Yes Recipient Signature: Yes Med Rec Note Co-signed by Attending: Coverage Notice Comment: DC IMM signed/delivered to patient. Original to chart. Reviewer: [id number] Suraj Morocho Notice Issued Date-Time: 12/24/2019 13:41 Notice Type: Patient Choice Letter Notice Delivered To: Patient Relationship to Patient: Self Traveling Sales Executive Name: Christy Gould Delivery Method: - Kyleigh Days: Prior Verbal Notification: Recipient Understood Notice: Yes Recipient Signature: Yes Med Rec Note Co-signed by Attending: Coverage Notice Comment: Patrick Camacho to patient/original to chart. Last DP export: 12/24/19 3:15 p Patient Name: CHRISTY GOULD Page [phone] at 0905 All edits/amendments must be made on the electronic document DICTATION DATE: 12/28/19903 FINAL APPLICATION REVIEWER: MEME 12/28/19903 RPT#: [id number] DC DATE:12/24/19 STATUS: DIS IN [facility] [address] [place] [address] END OF REPORT
== END 2019-12-24 18:03 | disposition home or self-care (01) | DRG 247 ==
LOC: D.ER 11:46 → D.M2 15:06
PROVIDERS: Family Medicine; Internal Medicine Cardiovascular Disease; Internal Medicine Interventional Cardiology; ADMIT Emergency Medicine; ATTEND Emergency Medicine
PROC: B2111ZZ Fluoroscopy of Multiple Coronary Arteries using Low Osmolar Contrast (ICD-10-PCS; 2019-12-23)
PROC: B2151ZZ Fluoroscopy of Left Heart using Low Osmolar Contrast (ICD-10-PCS; 2019-12-23)
PROC: 027034Z Dilation of Coronary Artery, One Artery with Drug-eluting Intraluminal Device, Percutaneous Approach (ICD-10-PCS; principal; 2019-12-23 14:33)
PROC: 4A023N7 Measurement of Cardiac Sampling and Pressure, Left Heart, Percutaneous Approach (ICD-10-PCS; 2019-12-23 14:33)
DX: I21.4 Non-ST elevation (NSTEMI) myocardial infarction (principal); F17.200 Nicotine dependence, unspecified, uncomplicated; I25.110 Atherosclerotic heart disease of native coronary artery with unstable angina pectoris

== ENCOUNTER 2020-08-15 07:28 | Day surgery (SDC) | payer MEDICARE, BC ==
--- NOTE | 2020-08-09 10:44 | NUR ---
SPOKE TO PT TO CONFIRM APPT FOR 08/10/20 AND SHE SAID SHE HAD TO RESCHEDULE DUE TO NOT STOPPING HER ASPIRIN.
[~2020-08-15] VITALS: Ht 171.4 cm; Wt 52.7 kg
[~2020-08-15 07:28] MED LIST: ASPIRIN81 MG PO; COREG 3.1253.125 MG PO; COREG6.25 MG PO; DIAMOX250 MG PO; LASIX40 MG PO; LIPITOR20 MG PO; MIRALAX17 GM PO; NICODERM CQ1 EAC3 TOPICAL; PLAVIX75 MG PO; PREDNISONE10 MG PO; PULMICORT0.5 MG/21 UPD; TESSALON PERLE100 MG PO; XARELTO20 MG PO
[2020-08-15 08:09] LABS: CREATININE - SERUM 0.8 mg/dL (0.6-1.3)
[2020-08-15 08:14] LABS: EOSINOPHILS 1.9 % (0-7); HEMATOCRIT 46.2 % (36.0-48.0); HEMOGLOBIN 14.3 g/dL (12-16); IMMATURE GRANULOCYTES 0.2 % (0-5); LYMPHOCYTE ABS# 1.32 10x3/uL (1.18-3.74); LYMPHOCYTES 25.7 % (15-50); MCH 28.5 pg (26.0-34.0); MCV 92.2 fL (80.0-100.0); MEAN PLATELET VOLUME 10.6 fL (7.4-10.4); MONOCYTES 11.5 % (2-11); NEUTROPHIL ABS# 3.07 10x3/uL (1.56-6.13); NEUTROPHILS 59.7 % (40-80); PLATELET COUNT 172 10x3/uL (130-400); RBC 5.01 10x6/uL (4.00-5.40); RDW 13.3 % (11.5-14.5); WBC 5.1 10x3/uL (4.8-10.8)
[2020-08-15] MEDS ORDERED: QVAR REDIHALE10.6 G1 IH (08:31)
[2020-08-15 08:47] LABS: APTT 34.2 SECONDS (22.8-39.4); INR 1.11 (0.85-1.17); PROTIME 13.3 SECONDS (11.6-15.0)
[2020-08-15 09:03] VITALS: Ht 171.4 cm; Wt 52.7 kg
--- NOTE | 2020-08-15 15:30 | NUR ---
LEFT FOREARM PIV DC'D WITH TIP INTACT. DISCHARGE INSTRUCTIONS REVIEWED WITH PATIENT. PATIENT DRESSES IN PERSONAL CLOTHING. DISCHARGED HOME VIA WHEELCHAIR TO PRIVATE VEHICLE WITH FRIEND AT [phone]
== END 2020-08-15 15:35 | disposition home or self-care (01) ==
LOC: D.SP 07:28
PROVIDERS: General Practice; ATTEND Internal Medicine Pulmonary Disease
DX: R91.1 Solitary pulmonary nodule (principal); J44.9 Chronic obstructive pulmonary disease, unspecified; I50.9 Heart failure, unspecified; I27.21 Secondary pulmonary arterial hypertension; R05 Cough; Z87.891 Personal history of nicotine dependence; R06.09 Other forms of dyspnea

== ENCOUNTER → 2020-09-28 12:13 | Outpatient (CLI) | payer MEDICARE, BC ==
[~2020-09-28 12:13] MED LIST changes: +QVAR REDIHALE10.6 G1 IH
== END | disposition home or self-care (01) ==
LOC: D.MRI 12:13
PROVIDERS: ATTEND Internal Medicine Hematology & Oncology
DX: C34.90 Malignant neoplasm of unspecified part of unspecified bronchus or lung (principal)